=== PATIENT | female | born 1960 | race Caucasian/White ===

== ENCOUNTER → 2016-12-28 | Outpatient (CLI) | payer MEDICARE ==
[~2016-12-28] MED LIST: ALPRAZOLAM PO; ALPRAZOLAM0.5 MG PO; ASPIRIN EC81 M1 PO; ASPIRIN PO; AUGMENTIN875 MG PO; CELEXA PO; CIPRO; CITALOPRAM HBR40 MG PO; COREG; COREG PO; COREG3.125 MG PO; FUROSEMIDE40 MG PO; HUMALOG100 U/ML; HUMALOG100 U/ML SUBQ; LANTUS100 U/ML; LANTUS100 U/ML SUBQ; LASIX PO; LIPITOR PO; LIPITOR40 MG PO; LISINOPRIL; LISINOPRIL PO; LISINOPRIL20 MG PO; NEURONTIN; NEURONTIN600 MG PO; NIACIN ER500 MG PO; NORCO 10-325 TA1 TAB PO; NOVOLIN 70/30 V10 M1; PERCOCET; PERCOCET PO; PHENERGAN W/CO120 ML PO; PRILOSEC20 M1 PO; TOPROL XL PO; VIBRAMYCIN100 M1 PO
--- NOTE | ~2016-12-28 | MY11 ---
[facility] A Service of [facility] RADIOLOGY TEXT RESULTS PATIENT: VANDANA SABILLON LOCATION: [facility] : 60 UNIT #: [id number] AGE: [address]: Lizett Humphreys MD SEX: F ORDER DR: [id number] [address] [address] [id number] O MR#: [id number] Acc #: [id number] NAME: VANDANA SABILLON : 1960 SEX: F STUDY DATE/TIME: 12/28/2016 9:57 UNIT: [facility] ROOM: STUDY DESCRIPTION: MY Mammogram Screening Dig [facility] Attending Physician: Lizett Humphreys M.D. Referring Physician: Lizett Humphreys M.D. Ordering Physician: Lizett Humphreys M.D. Primary Care Physician: Lizett Humphreys M.D. MEDICAL IMAGING REPORT This report is preliminary unless electronic signature is present. EXAM Digital screening mammogram 12/28/2016 HISTORY 56-year-old woman. No risk elevation. Annual screen. COMPARISON 08/16/2008, 07/27/2013, 06/13/2015. FINDINGS Digital imaging of each breast was completed utilizing screening protocol. Review includes FDA-approved CAD device. Breast parenchyma is moderately-dense particularly in the upper central and upper outer quadrants bilaterally. Subareolar duct prominence is again noted in each breast. Vascular calcification is present bilaterally. There is no interval-occurring mass. There are no suspicious microcalcifications and no architectural deformity. IMPRESSION Stable benign mammogram. Annual screening recommended. Patient's over the age of 40 are entered into a reminder system with target due date for the next mammogram. BIRADS: 2 Benign findings Dictated by... Abdiel Krishnamurthy M.D. THIS IS AN ELECTRONICALLY VERIFIED REPORT [facility] A Service of [facility] RADIOLOGY TEXT RESULTS PATIENT: VANDANA SABILLON LOCATION: [facility] : 60 UNIT #: [id number] AGE: [address]: Lizett Humphreys MD SEX: F ORDER DR: Abdiel Krishnamurthy M.D. at 12/28/2016 2:17 PM ANGELINA/gumaro TD: 12/28/2016 12:57 JOB #: [id number] MEDICAL IMAGING REPORT Page 1 of 1
== END | disposition home or self-care (01) ==
LOC: SMAM 09:24
DX: Z12.31 Encounter for screening mammogram for malignant neoplasm of breast (principal)
CPT/HCPCS: G0202